=== PATIENT | male | born 1985 | race Asian ===

== ENCOUNTER → 2018-01-29 | Outpatient (CLI) | payer OTHER ==
[~2018-01-29] MED LIST: METHACHOLINE KIT (J7674) INH
== END ==
LOC: M CARPUL 07:17
DX: R94.2 Abnormal results of pulmonary function studies (principal)

== ENCOUNTER 2024-12-11 16:54 | Emergency (ER) | payer OTHER ==
[~2024-12-11] VITALS: Ht 175.3 cm; Wt 78.8 kg
[2024-12-11] MEDS ORDERED: CYCL-707 (17:03)
[2024-12-11] MEDS: KETOROLAC 60MG 2ML VIAL IM ONE (19:59)
[2024-12-11] MEDS: predniSONE 20 MG TAB PO ONE (21:02)
[2024-12-11] MEDS: diazePAM 5MG TABLET PO ONE (21:02)
[2024-12-11] MEDS: ACETAMINOPHEN 500 MG TAB PO ONE (21:02)
[2024-12-11] MEDS: LIDOCAINE 5% (LIDODERM) PATCH TD ONE (21:03)
[2024-12-11 21:47] VITALS: BP 114/77; TEMP 96.9; O2SAT 97
[2024-12-11] MEDS ORDERED: MEDR4TAB PO (21:49)
[2024-12-11] MEDS ORDERED: NAPR-837 PO (21:49)
[2024-12-11] MEDS ORDERED: METH-1164 PO (21:49)
== END 2024-12-11 21:53 | disposition home or self-care (01) ==
LOC: M ED 16:54
DX: M54.50 Low back pain, unspecified (principal); J45.909 Unspecified asthma, uncomplicated; Z79.899 Other long term (current) drug therapy
CPT/HCPCS: 72110; 96372; 99283; J1885; J7512

== ENCOUNTER → 2025-09-24 | Outpatient (CLI) | payer OTHER ==
[~2025-09-24] MED LIST changes: +CYCL-707; +MEDR4TAB PO; +METH-1164 PO; -METHACHOLINE KIT (J7674) INH; +NAPR-837 PO; +PROHANCE 279.3MG/ML 15ML VIAL As Ordered ONE
== END ==
LOC: M RAD 07:27
DX: M67.431 Ganglion, right wrist (principal); M65.841 Other synovitis and tenosynovitis, right hand; S63.591A Other specified sprain of right wrist, initial encounter
CPT/HCPCS: 73223; A9576